=== PATIENT | female | born 1955 | race Caucasian/White ===

== ENCOUNTER 2017-06-09 16:06 | Inpatient (IN) | payer MEDICARE, OTHER ==
[~2017-06-09] VITALS: Ht 160 cm; Wt 186.0 kg
[2017-06-09] VITALS (15 sets, daily range): BP systolic 107–138; BP diastolic 52–76
[2017-06-09] MEDS ORDERED: NS IV 1000 ML 1,000 ML ONE ×2 (16:24→20:14)
[2017-06-09 16:48] LABS: BASOPHILS # (AUTO) 0.1 10^3/uL (0.0-0.1); BASOPHILS % (AUTO) 0 % (0-10); EOSINOPHILS # (AUTO) 0.8 10^3/uL (0.0-0.3); EOSINOPHILS % (AUTO) 6 % (0-10); LYMPHOCYTES # (AUTO) 1.5 X 10^3 (1.0-4.0); LYMPHOCYTES % (AUTO) 11 % (12-44); MEAN CORPUSCULAR HEMOGLOBIN 22 PG (25-34); MEAN CORPUSCULAR HGB CONC 29 G/DL (32-36); MEAN CORPUSCULAR VOLUME 76 FL (80-99); MEAN PLATELET VOLUME 10.8 FL (7.4-10.4); MONOCYTES % (AUTO) 7 % (0-12); NEUTROPHILS # (AUTO) 10.2 X 10^3 (1.8-7.8); NEUTROPHILS % (AUTO) 76 % (42-75); PLATELET COUNT 445 10^3/uL (130-400); RED BLOOD COUNT 2.46 10^6/uL (4.35-5.85); RED CELL DISTRIBUTION WIDTH 17.7 % (10.0-14.5); WHITE BLOOD COUNT 13.5 10^3/uL (4.3-11.0)
[2017-06-09 16:50] LABS: HEMATOCRIT 19 % (35-52); HEMOGLOBIN 5.4 G/DL (11.5-16.0)
[2017-06-09 16:51] LABS: INR 1.2 (0.8-1.4); PROTHROMBIN TIME PATIENT 14.9 SEC (12.2-14.7)
[2017-06-09 17:03] LABS: ALBUMIN 3.2 GM/DL (3.2-4.5); BILIRUBIN,TOTAL 1.1 MG/DL (0.1-1.0); CALCIUM 8.4 MG/DL (8.5-10.1); CREATININE SERUM 1.37 MG/DL (0.60-1.30); TOTAL PROTEIN 6.5 GM/DL (6.4-8.2)
--- NOTE | 2017-06-09 17:51 | ED GU-Female ---
General Chief Complaint: -Female Stated Complaint: BLEEDING Nursing Triage Note: PT REPORTS VAGINAL/RECTAL BLEEDING STARTING APPROX 4 MONTHS AGO OFF AND ON, AND FRIDAY INCREASED TO SIGNIFICANT AMOUNT. PT STATES SHE IS GENERALLY AMB AT HOME BUT HAS BEEN TOO WEAK SINCE FRIDAY TO MOVE. PT HAS HAD INCREASED SOA AND HAS BEEN PASSING LARGE CLOTS. PT BROUGHT IN BY EMS WITH PFD ASSIST. PT REPORTS BEING HOMEBOUND SINCE 05/22/13. Nursing Sepsis Screen: No Definite Risk Source: patient Exam Limitations: no limitations History of Present Illness Date Seen by Provider: Jun 09, 2017 Time Seen by Provider: 17:51 Allergies and Home Medications Home Medications No Active Prescriptions or Reported Meds Past Smmmwfq-Ehuzbp-Icieky Hx Patient Social History Alcohol Use: Denies Use Recreational Drug Use: No Smoking Status: Former Smoker Former Smoker, Quit: May 22, 2013 2nd Hand Smoke Exposure: No Recent Foreign Travel: No Contact w/Someone Who Travel: No Recent Infectious Disease Expo: No Recent Hopitalizations: No Physical Abuse: No Sexual Abuse: No Mistreated: No Fear: No Immunizations Up To Date Tetanus Booster (TDap): More than 5yrs Seasonal Allergies Seasonal Allergies: Yes Surgeries Surgeries: Adenoidectomy, Tonsillectomy Respiratory History of Respiratory Disorde: Yes Respiratory Disorders: Asthma, Pneumonia Currently Using CPAP: No Currently Using BIPAP: No Cardiovascular History of Cardiac Disorders: No Neurological History of Neurological Disord: No Reproductive System : No Genitourinary History of Genitourinary Disor: No Gastrointestinal History of Gastrointestinal Di: No Musculoskeletal History of Musculoskeletal Dis: Yes (BROKE COCCYX ) Musculoskeletal Disorders: Chronic Back Pain Endocrine History of Endocrine Disorders: No HEENT History of HEENT Disorders: No Cancer History of Cancer: No Psychosocial History of Psychiatric Problem: Yes Behavioral Health Disorders: Anxiety Suicide Risk Score: 1 Integumentary History of Skin or Integumenta: Yes Skin/Integumentary Disorders: Recent Skin Changes Blood Transfusions History of Blood Disorders: No Adverse Reaction to a Blood Tr: No Physical Exam Vital Signs Vital Sign - Last 12Hours 06/09/17 16:10 Temp 97.9 Pulse 115 Resp 26 B/P (MAP) 132/51 (78) Pulse Ox 91 O2 Delivery Room Air Capillary Refill : Less Than 3 Seconds Progress/Results/Core Measures Suspected Sepsis Recent Fever Within 48 Hours: No Infection Criteria Present: None New/Unexplained Altered Menta: No Sepsis Screen: No Definite Risk Sepsis Diagnosis: SIRS Temperature:97.9 Pulse: 115 Respiratory Rate: 26 Laboratory Tests 06/09/17 16:20: White Blood Count 13.5H Blood Pressure 132 /51 Mean: 78 Laboratory Tests 06/09/17 16:20: Creatinine 1.37H, INR Comment 1.2, Platelet Count 445H, Total Bilirubin 1.1H Results/Orders Lab Results Laboratory Tests Test 06/09/17 16:20 Range/Units White Blood Count 13.5 H 4.3-11.0 10^3/uL Red Blood Count 2.46 L 4.35-5.85 10^6/uL Hemoglobin 5.4 *L 11.5-16.0 G/DL Hematocrit 19 *L 35-52 % Mean Corpuscular Volume 76 L 80-99 FL Mean Corpuscular Hemoglobin 22 L 25-34 PG Mean Corpuscular Hemoglobin Concent 29 L 32-36 G/DL Red Cell Distribution Width 17.7 H 10.0-14.5 % Platelet Count 445 H 130-400 10^3/uL Mean Platelet Volume 10.8 H 7.4-10.4 FL Neutrophils (%) (Auto) 76 H 42-75 % Lymphocytes (%) (Auto) 11 L 12-44 % Monocytes (%) (Auto) 7 0-12 % Eosinophils (%) (Auto) 6 0-10 % Basophils (%) (Auto) 0 0-10 % Neutrophils # (Auto) 10.2 H 1.8-7.8 X 10^3 Lymphocytes # (Auto) 1.5 1.0-4.0 X 10^3 Monocytes # (Auto) 1.0 0.0-1.0 X 10^3 Eosinophils # (Auto) 0.8 H 0.0-0.3 10^3/uL Basophils # (Auto) 0.1 0.0-0.1 10^3/uL Prothrombin Time 14.9 H 12.2-14.7 SEC INR Comment 1.2 0.8-1.4 Activated Partial Thromboplast Time 33 24-35 SEC Sodium Level 136 135-145 MMOL/L Potassium Level 4.0 3.6-5.0 MMOL/L Chloride Level 102 98-107 MMOL/L Carbon Dioxide Level 19 L 21-32 MMOL/L Anion Gap 15 H 5-14 MMOL/L Blood Urea Nitrogen 15 7-18 MG/DL Creatinine 1.37 H 0.60-1.30 MG/DL Estimat Glomerular Filtration Rate 39 BUN/Creatinine Ratio 11 Glucose Level 156 H 70-105 MG/DL Calcium Level 8.4 L 8.5-10.1 MG/DL Total Bilirubin 1.1 H 0.1-1.0 MG/DL Aspartate Amino Transf (AST/SGOT) 14 5-34 U/L Alanine Aminotransferase (ALT/SGPT) 10 0-55 U/L Alkaline Phosphatase 61 40-136 U/L Total Protein 6.5 6.4-8.2 GM/DL Albumin 3.2 3.2-4.5 GM/DL My Orders Orders - SAUL JAMES Cbc With Automated Diff (06/09/17 16:37) Comprehensive Metabolic Panel (06/09/17 16:37) Type And Screen (06/09/17 16:37) Saline Lock/Iv-Start (06/09/17 16:37) Catheter(Urinary) Insert & Ass 03,15 (06/09/17 16:37) Protime With Inr (06/09/17 16:37) Partial Thromboplastin Time (06/09/17 16:37) Red Cells Leukocytes Reduced (06/09/17 17:01) Medications Given in ED Current Medications Medications Dose Ordered Sig/Skinny Route Start Time Stop Time Status Last Admin Dose Admin Sodium Chloride 1,000 ml @ ud STK-MED ONCE .ROUTE 06/09/17 16:24 06/09/17 16:26 DC 06/09/17 16:27 999 MLS/HR Vital Signs/I&O Vital Sign - Last 12Hours 06/09/17 16:10 Temp 97.9 Pulse 115 Resp 26 B/P (MAP) 132/51 (78) Pulse Ox 91 O2 Delivery Room Air Capillary Refill : Less Than 3 Seconds Blood Pressure Mean: 78 Departure Departure-Patient Inst. Referrals: NO,LOCAL PHYSICIAN (PCP/Family) Primary Care Physician Scripts No Active Prescriptions or Reported Meds SAUL JAMES Jun 09, 2017 17:51
--- NOTE | 2017-06-09 19:30 | Diagnostic Imaging Report ---
Clinical indication: Patient with shortness of air. Exam: Portable chest x-ray upright view. Comparison: None. Findings: Limited exam due to patient body habitus. There is bony thickening involving the posterior aspect of the right T6 rib, likely from old healed fracture changes. There is suspected mild atelectasis in both lung bases. There is mild cardiomegaly. There is no significant pulmonary vascular congestion. There is no gross pleural effusion or pneumothorax. There are degenerative spurs involving the thoracic spine. Impression: 1.: Limited exam due to patient body habitus. 2: There is suspected mild bibasilar atelectasis with no definite radiographic evidence of acute cardiopulmonary process. 3: Mild cardiomegaly with no significant pulmonary vascular congestion. 4: Likely old healed fracture changes of the right T6 rib. Dictated by: Dictated on workstation # [id number]
[2017-06-09] MEDS ORDERED: CATHETER FLUSH 10 ML SYR IV PRN (20:30)
[2017-06-09] MEDS ORDERED: ONDANSETRON 4 MG/2 ML (SDV) Z0FRAN IV PRN (20:30)
[2017-06-09] MEDS: NS IV 1000 ML 1,000 ML IV SCH (21:08)
[2017-06-09] MEDS: ACETAMINOPHEN 325 MG TABLET/CAPLET (TYLENOL) PO PRN (22:58)
[2017-06-09 23:01] LABS: BILIRUBIN,URINE NEGATIVE (NEGATIVE); CLARITY,URINE SLIGHTLY CLOUDY; COLOR,URINE AMBER; GLUCOSE, URINE (UA) NEGATIVE (NEGATIVE); KETONES,URINE NEGATIVE (NEGATIVE); LEUKOCYTE ESTERASE ,URINE 1+ (NEGATIVE); NITRITE,URINE NEGATIVE (NEGATIVE); PH,URINE 5 (5-9); PROTEIN,URINE 2+ (NEGATIVE); UROBILINOGEN,URINE 1 MG/DL (NORMAL)
[2017-06-09 23:08] LABS: AMORPHOUS SEDIMENT,UR FEW AMOR URATES /LPF
[2017-06-10] VITALS (30 sets, daily range): BP systolic 113–178; BP diastolic 55–94
[2017-06-10] MEDS: NS IV 1000 ML 1,000 ML IV SCH ×3 (00:44→17:59)
[2017-06-10 03:29] LABS: HEMOGLOBIN 6.3 G/DL (11.5-16.0)
[2017-06-10 04:58] LABS: BASOPHILS # (AUTO) 0.1 10^3/uL (0.0-0.1); BASOPHILS % (AUTO) 0 % (0-10); EOSINOPHILS # (AUTO) 0.7 10^3/uL (0.0-0.3); EOSINOPHILS % (AUTO) 5 % (0-10); HEMATOCRIT 21 % (35-52); LYMPHOCYTES # (AUTO) 1.5 X 10^3 (1.0-4.0); LYMPHOCYTES % (AUTO) 10 % (12-44); MEAN CORPUSCULAR HEMOGLOBIN 24 PG (25-34); MEAN CORPUSCULAR HGB CONC 31 G/DL (32-36); MEAN CORPUSCULAR VOLUME 78 FL (80-99); MEAN PLATELET VOLUME 10.3 FL (7.4-10.4); MONOCYTES # (AUTO) 1.2 X 10^3 (0.0-1.0); MONOCYTES % (AUTO) 8 % (0-12); NEUTROPHILS % (AUTO) 77 % (42-75); PLATELET COUNT 423 10^3/uL (130-400); RED BLOOD COUNT 2.72 10^6/uL (4.35-5.85); RED CELL DISTRIBUTION WIDTH 17.3 % (10.0-14.5); WHITE BLOOD COUNT 14.4 10^3/uL (4.3-11.0)
[2017-06-10 05:00] LABS: HEMOGLOBIN 6.5 G/DL (11.5-16.0)
[2017-06-10] MEDS: ACETAMINOPHEN 325 MG TABLET/CAPLET (TYLENOL) PO PRN ×2 (05:14→18:15)
[2017-06-10 05:25] LABS: ALBUMIN 3.1 GM/DL (3.2-4.5); BILIRUBIN,TOTAL 2.4 MG/DL (0.1-1.0); CALCIUM 8.1 MG/DL (8.5-10.1); CREATININE SERUM 1.37 MG/DL (0.60-1.30); MAGNESIUM 2.2 MG/DL (1.8-2.4); PHOSPHORUS 4.1 MG/DL (2.3-4.7); POTASSIUM 4.2 MMOL/L (3.6-5.0); TOTAL PROTEIN 6.3 GM/DL (6.4-8.2)
[2017-06-10 05:35] LABS: ANISOCYTOSIS SLIGHT; BAND NEUTROPHILS 2 %; EOSINOPHILS % (MANUAL) 5 %; HYPOCHROMASIA SLIGHT; LYMPHOCYTES % (MANUAL) 4 %; MONOCYTES % (MANUAL) 7 %; NEUTROPHILS % (MANUAL) 82 %; POIKILOCYTOSIS SLIGHT; POLYCHROMASIA SLIGHT
--- NOTE | 2017-06-10 06:36 | Pulmonary Consultation ---
History of Present Illness History of Present Illness Date of Consultation 06/10/17 06:30 Time Seen by Provider: 06:30 Date of Admission History of Present Illness 61yo with morbid obesity presented secondary vaginal/rectal bleeding that stated 4 months ago however became much worse on Friday. She lives at home alone and has not left her house in 5 yrs. Pt has been very weak and has been passing large vaginal clots. I am consulted for ICU management. Allergies and Home Medications Allergies Coded Allergies: No Known Drug Allergies (Unverified , 06/09/17) Home Medications No Active Prescriptions or Reported Meds Past Kiohqnt-Oilaxz-Oqmvvj Hx Patient Social History Alcohol Use: Denies Use Recreational Drug Use: No Smoking Status: Never a Smoker Former Smoker, Quit: May 22, 2013 2nd Hand Smoke Exposure: No Recent Foreign Travel: No Contact w/Someone Who Travel: No Recent Infectious Disease Expo: No Recent Hopitalizations: No Physical Abuse: No Sexual Abuse: No Mistreated: No Fear: No Immunizations Up To Date Tetanus Booster (TDap): More than 5yrs PED Vaccines UTD: No Seasonal Allergies Seasonal Allergies: Yes Surgeries History of Surgeries: Yes Surgeries: Adenoidectomy, Tonsillectomy Respiratory History of Respiratory Disorde: Yes Respiratory Disorders: Asthma, Pneumonia Currently Using CPAP: No Currently Using BIPAP: No Cardiovascular History of Cardiac Disorders: No Neurological History of Neurological Disord: No Reproductive System : No Genitourinary History of Genitourinary Disor: No Gastrointestinal History of Gastrointestinal Di: No Musculoskeletal History of Musculoskeletal Dis: Yes (BROKE COCCYX ) Musculoskeletal Disorders: Chronic Back Pain Endocrine History of Endocrine Disorders: No HEENT History of HEENT Disorders: No Cancer History of Cancer: No Psychosocial History of Psychiatric Problem: Yes Behavioral Health Disorders: Anxiety Suicide Risk Score: 1 Integumentary History of Skin or Integumenta: Yes Skin/Integumentary Disorders: Recent Skin Changes Blood Transfusions History of Blood Disorders: No Adverse Reaction to a Blood Tr: No Family Medical History Family Medial History: Arthritis Cardiovascular disease 19 MOTHER, , Onset:60 years & older Colon cancer 19 MOTHER, , Onset:60 years & older FH: lung cancer 19 FATHER, , Onset:60 years & older Hypertension 19 MOTHER, , Onset:40's - 50 Review of Systems Time Seen by Provider: 06:54 Constitutional: Sweats, Weakness, Malaise, No: Fever, Chills, Other Eyes: No: Pain, Vision change, Conjunctivae inflammation, Eyelid inflammation, Other, Redness ENT: No: Ear pain, Ear discharge, Nose pain, Nose discharge, Nose congestion, Mouth pain, Mouth swelling, Throat pain, Throat swelling, Other Respiratory: SOB with excertion, No: Cough, Dry, Wheezing, Sputum Cardiovascular: Orthopnea, Paroxysmal Noc. Dyspnea, No: Chest Pain, Palpitations, Edema, Lt Headedness, Other Gastrointestinal: Hematochezia, No: Nausea, Vomiting, Abdominal Pain, Diarrhea , Constipation, Melena, Other Musculoskeletal: back pain Skin: Rash, Lesions, No: Jaundice, Bruising Neurological: Weakness, Incoordination, Confusion, No: Change in speech, Seizures Exam Exam Vital Signs Date Time Temp Pulse Resp B/P (MAP) Pulse Ox O2 Delivery O2 Flow Rate FiO2 06/10/17 06:00 95 24 139/74 (95) 100 Nasal Cannula 2.00 06/10/17 06:00 99.7 98 24 139/75 100 Nasal Cannula 2.00 06/10/17 05:00 100 18 132/63 (86) 99 Nasal Cannula 2.00 06/10/17 04:59 98.9 100 22 132/63 100 Nasal Cannula 06/10/17 04:10 99.0 101 17 152/80 100 Nasal Cannula 2.00 06/10/17 04:00 99 18 131/68 (89) 99 Nasal Cannula 2.00 06/10/17 03:55 99.4 101 26 120/63 100 Nasal Cannula 2.00 06/10/17 03:15 99.4 06/10/17 03:15 99 Nasal Cannula 2.00 06/10/17 03:00 98 24 126/55 (78) 99 Nasal Cannula 2.00 06/10/17 02:22 99.4 98 14 113/60 100 Nasal Cannula 2.00 06/10/17 02:00 99 15 113/60 (77) 100 Nasal Cannula 2.00 06/10/17 01:00 101 06/10/17 01:00 101 23 129/69 (89) 100 Nasal Cannula 2.00 06/10/17 00:30 100 Nasal Cannula 2.00 06/10/17 00:13 98.6 96 18 125/66 100 Nasal Cannula 2.00 06/10/17 00:00 98 23 125/66 (85) 100 Nasal Cannula 2.00 06/09/17 23:54 98.4 Nasal Cannula 2.00 06/09/17 23:52 98.6 93 20 123/63 100 Nasal Cannula 2.00 06/09/17 23:20 98.4 97 22 132/62 100 Nasal Cannula 2.00 06/09/17 23:00 98 26 118/56 (76) 100 Nasal Cannula 2.00 06/09/17 22:45 98 24 120/57 (78) 100 Nasal Cannula 2.00 06/09/17 22:30 98.7 95 18 107/52 100 Nasal Cannula 2.00 06/09/17 22:30 97 29 107/52 (70) 100 Nasal Cannula 2.00 06/09/17 22:15 110 20 110/56 (74) 100 Nasal Cannula 2.00 06/09/17 22:00 118 31 94 Nasal Cannula 2.00 06/09/17 21:45 103 32 138/76 (96) 100 Nasal Cannula 2.00 06/09/17 21:30 103 28 138/73 (94) 100 Nasal Cannula 2.00 06/09/17 21:15 104 35 138/68 (91) 100 Nasal Cannula 2.00 06/09/17 21:00 101 14 131/58 (82) 100 Nasal Cannula 2.00 06/09/17 20:45 97 28 126/59 (81) 100 Nasal Cannula 2.00 06/09/17 20:45 99.0 99 24 126/59 100 Nasal Cannula 2.00 06/09/17 20:30 98 16 116/61 (79) 100 Nasal Cannula 2.00 06/09/17 20:24 98.9 99 24 112/61 100 Nasal Cannula 2.00 06/09/17 20:15 97 14 112/61 (78) 100 Nasal Cannula 2.00 06/09/17 20:00 99.0 104 28 137/66 (89) 100 Nasal Cannula 2.00 06/09/17 20:00 100 Nasal Cannula 2.00 06/09/17 20:00 104 06/09/17 19:40 98 20 97 Nasal Cannula 2.00 06/09/17 16:10 97.9 115 26 132/51 (78) 91 Room Air I & O 06/10/17 07:00 Intake Total 2939 ml Output Total 395 ml Balance 2544 ml General Appearance: Anxious, Mild Distress, Obese HEENT: PERRL/EOMI Neck: Full Range of Motion, Non Tender, Supple Respiratory: No Accessory Muscle Use, No Respiratory Distress, Decreased Breath Sounds Cardiovascular: Regular Rate, Rhythm, No JVD, No Murmur Capillary Refill: Less Than 3 Seconds Gastrointestinal: non tender, soft, no organomegaly, no pulsatile mass Extremity: Normal Capillary Refill, Normal Inspection, Non Tender, No Calf Tenderness Neurologic/Psychiatric: Alert, Oriented x3, No Motor/Sensory Deficits Skin: Normal Color, Warm/Dry Lymphatic: No Adenopathy Results Lab Laboratory Tests 06/09/17 16:20 06/10/17 03:15 06/10/17 04:40 Assessment/Plan Assessment/Plan Anemia secondary to vaginal and possible GIB -Dr. Menjivar is consulted -Follow H&H Q4 hrs -Check occult stool -Start protonix 40mg IV daily -PT is getting 4 units of blood Morbid obesity Leukocytosis r/o sepsis -Start Rocephin -Charles culture 255 Clinical Quality Measures DVT/VTE Risk/Contraindication: Risk Factor Score Per Nursin RFS Level Per Nursing on Admit: 4+=Very High NASIR LUCIO DO Jun 10, 2017 06:36
[2017-06-10] MEDS ORDERED: INFLUENZA TRIvalent 2017-2018 0.5 ML/45 MCG SYR IM ONE (07:00)
--- NOTE | 2017-06-10 08:07 | History & Physical-Hospitalist ---
HPI History of Present Illness: HPI/Chief Complaint Pt is a 61yoCF who presented to the ER with complaints of vaginal and rectal bleeding. She has not seen a physician for years and has no left her apartment some May 2013 due to her debility from her morbid obesity. She begin to have vaginal bleeding around 4 months ago but did not seek treatment because it would resolve after a few days. On 06/06 her bleeding picked up and continued to worsening prompting her to call EMS. She reports she was passing clots the size of a cantaloupe. She was also suffering from SOB and weakness. She denies any pain or chest pain. At this time she believes her bleeding to be coming from both her rectum and her vagina. Date Seen 06/10/17 Time Seen by Provider: 07:40 Attending Physician Wagner Caldera MD PCP No,Local Physician Referring Physician Date of Admission Jun 09, 2017 at 18:59 Home Medications & Allergies Home Medications Reviewed patient Home Medication Reconciliation Form Allergies Allergies Coded Allergies No Known Drug Allergies (Unverified06/09/17) Past Ivbqlrx-Hnecvk-Knmuen Hx Patient Social History Marrital Status: single Employed/Student: unemployed Alcohol Use: Denies Use Recreational Drug Use: No Smoking Status: Never a Smoker Former Smoker, Quit: May 22, 2013 2nd Hand Smoke Exposure: No Physical Abuse Screen: No Sexual Abuse: No Recent Foreign Travel: No Contact w/other who traveled: No Recent Hopitalizations: No Recent Infectious Disease Expo: No Immunizations Up To Date Tetanus Booster (TDap): More than 5yrs Pediatric: No Seasonal Allergies Seasonal Allergies: Yes Surgeries Yes Adenoidectomy, Tonsillectomy Respiratory Yes Currently Using CPAP: No Currently Using BIPAP: No Cardiovascular No Neurological No Reproductive System : No Genitourinary No Gastrointestinal No Musculoskeletal Yes (BROKE COCCYX ) Chronic Back Pain Endocrine History of Endocrine Disorders: No HEENT History of HEENT Disorders: No Cancer No Psychosocial History of Psychiatric Problem: Yes Behavioral Health Disorders: Anxiety Integumentary History of Skin or Integumenta: Yes Skin/Integumentary Disorders: Recent Skin Changes Blood Transfusions History of Blood Disorders: No Adverse Reaction to a Blood Tr: No Family Medical History Family Hx: Arthritis Cardiovascular disease 19 MOTHER, , Onset:60 years & older Colon cancer 19 MOTHER, , Onset:60 years & older FH: lung cancer 19 FATHER, , Onset:60 years & older Hypertension 19 MOTHER, , Onset:40's - 50 Review of Systems Constitutional: No chills, No fever, weakness EENTM: No blurred vision, No double vision Respiratory: No cough, dyspnea on exertion, short of breath Cardiovascular: No chest pain, edema, No palpitations Gastrointestinal: No abdominal pain, loss of appetite, No nausea, No vomiting Genitourinary: No dysuria, hematuria Musculoskeletal: no symptoms reported Skin: no symptoms reported Psychiatric/Neurological: No Symptoms Reported Physical Exam Physical Exam Vital Signs Vital Sign - Last 12Hours 06/09/17 06/09/17 16:10 19:40 Temp 97.9 Pulse 115 Resp 26 B/P (MAP) 132/51 (78) Pulse Ox 91 O2 Delivery Room Air O2 Flow Rate 2.00 Capillary Refill : Less Than 3 Seconds General Appearance: No Apparent Distress, Other (morbidly obese) Neck: Non Tender, Supple Respiratory: Lungs Clear (though limited by habitus), No Accessory Muscle Use, No Respiratory Distress Cardiovascular: No Murmur, Tachycardia Gastrointestinal: Normal Bowel Sounds, Non Tender, Soft Extremity: Swelling, Other (lymphedema (r>l)) Neurologic/Psychiatric: Alert, Oriented x3, Normal Mood/Affect Skin: Pallor Results Results/Procedures Lab Laboratory Tests 06/09/17 16:20 06/10/17 03:15 06/10/17 04:40 Assessment/Plan Admission Diagnosis Symptomatic anemia Diagnosis/Problems Diagnosis/Problems (1) Anemia Assessment & Plan: s/p 3u pRBC 4th unit ordered Still profound anemia and symptomatic PUBLIC RELATIONS COUNSELOR consulted- appreciate recs Surgery consulted- appreciate recs Qualifiers: Qualified Codes: D62 - Acute posthemorrhagic anemia (2) Vaginal bleeding problems Status: Acute Assessment & Plan: concern for undelrying neoplasm Discussed with Dr Menjivar Transvaginal usg ordered Will likely need exam under anesthesia with EMB once more stable (3) Leukocytosis Assessment & Plan: Started on Rocephin Will continue to monitor (4) Morbid obesity with BMI of 70 and over, adult Assessment & Plan: Complicating care Unable to get CT of abd due to obesity Also difficult pelvic exam due to pannus/obesity Clinical Quality Measures DVT/VTE Risk/Contraindication: Risk Factor Score Per Nursin RFS Level Per Nursing on Admit: 4+=Very High STEW,WAGNER M MD Jun 10, 2017 08:07
--- NOTE | 2017-06-10 08:21 | Diagnostic Imaging Report ---
INDICATION: Anemia. TIME OF EXAM: 4:16 a.m. Correlation is made with prior study one day earlier. FINDINGS: The heart is enlarged but stable. There appears to be some right perihilar atelectasis or infiltrate. The left lung is clear. No effusion or pneumothorax is seen. IMPRESSION: Findings suggestive of mild right perihilar infiltrate or atelectasis. Dictated by: Dictated on workstation # [id number]
[2017-06-10] MEDS: cefTRIAXone INJECTION 1,000 MG in D5W 50 ML IVPB SOLUTION 50 ML IV SCH (08:56)
[2017-06-10] MEDS: PANTOPRAZOLE 40 MG/10 ML (PROTONIX) VIAL IV SCH (08:56)
[2017-06-10] MEDS: MICONAZOLE 2% POWDER (DESENEX AF) 90 GM TOP SCH ×2 (09:00→20:52)
--- NOTE | 2017-06-10 10:24 | Consultation ---
History of Present Illness History of Present Illness Patient Consulted On(nga/time) 06/10/17 10:21 Date Seen by Provider: Jun 10, 2017 Time Seen by Provider: 09:45 Reason for Visit: Rectal and vaginal bleeding with profound anemia History of Present Illness this morbidly obese lady, who lives by herself and has not left her house for over 2 years reports suffering rectal and vaginal bleeding over a two-month period. She panicked and called emergency medical services, resulting in ER visit and subsequent admission. She has been found to be anemic with a hemoglobin of 5.4 ,possibly due to chronic blood loss. I have been asked to see her to investigate the source of rectal bleeding. She denies ever having undergone colonoscopy. Allergies and Home Medications Allergies Coded Allergies: No Known Drug Allergies (Unverified , 06/09/17) Home Medications No Active Prescriptions or Reported Meds Past Aqinyyx-Jyoiet-Geyxgt Hx Patient Social History Alcohol Use: Denies Use Recreational Drug Use: No Smoking Status: Never a Smoker Former Smoker, Quit: May 22, 2013 2nd Hand Smoke Exposure: No Recent Foreign Travel: No Contact w/Someone Who Travel: No Recent Infectious Disease Expo: No Recent Hopitalizations: No Physical Abuse: No Sexual Abuse: No Mistreated: No Fear: No Immunizations Up To Date Tetanus Booster (TDap): More than 5yrs PED Vaccines UTD: No Seasonal Allergies Seasonal Allergies: Yes Surgeries History of Surgeries: Yes Surgeries: Adenoidectomy, Tonsillectomy Respiratory History of Respiratory Disorde: Yes Respiratory Disorders: Asthma, Pneumonia Currently Using CPAP: No Currently Using BIPAP: No Cardiovascular History of Cardiac Disorders: No Neurological History of Neurological Disord: No Reproductive System : No Genitourinary History of Genitourinary Disor: No Gastrointestinal History of Gastrointestinal Di: No Musculoskeletal History of Musculoskeletal Dis: Yes (BROKE COCCYX ) Musculoskeletal Disorders: Chronic Back Pain Endocrine History of Endocrine Disorders: No HEENT History of HEENT Disorders: No Cancer History of Cancer: No Psychosocial History of Psychiatric Problem: Yes Behavioral Health Disorders: Anxiety Suicide Risk Score: 1 Integumentary History of Skin or Integumenta: Yes Skin/Integumentary Disorders: Recent Skin Changes Blood Transfusions History of Blood Disorders: No Adverse Reaction to a Blood Tr: No Family Medical History Family Medial History: Arthritis Cardiovascular disease 19 MOTHER, , Onset:60 years & older Colon cancer 19 MOTHER, , Onset:60 years & older FH: lung cancer 19 FATHER, , Onset:60 years & older Hypertension 19 MOTHER, , Onset:40's - 50 Review of Systems-General Constitutional: malaise, weakness EENTM: no symptoms reported Respiratory: dyspnea on exertion Cardiovascular: edema, palpitations Gastrointestinal: see HPI Genitourinary: see HPI Musculoskeletal: joint pain, muscle pain, muscle weakness Skin: see HPI Psychiatric/Neurological: Anxiety Physical Exam-General Problems Physical Exam Vital Signs Vital Sign - Last 12Hours 06/09/17 06/09/17 16:10 19:40 Temp 97.9 Pulse 115 Resp 26 B/P (MAP) 132/51 (78) Pulse Ox 91 O2 Delivery Room Air O2 Flow Rate 2.00 Capillary Refill : Less Than 3 Seconds General Appearance: mild distress Skin: warm/dry Comments morbidly obese patient with anemia due to chronic blood loss. Vaginal and rectal bleeding. Abdomen obese. No obvious mass palpable. Assessment/Plan Assessment/Plan Admission Diagnosis/Plan lady with chronic anemia due to blood loss. Combination of vaginal rectal bleeding. Evaluation by the PULMONARY NURSE PRACTITIONER service is pending. With regard to rectal bleeding, she will require endoscopy, possibly as an outpatient Clinical Quality Measures DVT/VTE Risk/Contraindication: Risk Factor Score Per Nursin RFS Level Per Nursing on Admit: 4+=Very High UNIQUE LEON MD Jun 10, 2017 10:24 am
--- NOTE | 2017-06-10 11:13 | Diagnostic Imaging Report ---
INDICATION: Vaginal bleeding. TECHNIQUE: Transabdominal and transvaginal pelvic sonography was performed. The study is significantly compromised due to the patient's large body habitus. In particular, the vaginal imaging was compromised. The patient did experience discomfort during the transvaginal portion. FINDINGS: The uterus is enlarged at 15.3 x 11.0 x 8.1 cm. There does appear to be a lobulated appearance to the uterus which may contain fibroids. The endometrium was not well visualized on this study. The ovaries were not visualized. No definite free fluid is seen. IMPRESSION: Severely limited study as described above. There is uterine enlargement. The endometrium and adnexal structures were not well-visualized on this exam. Dictated by: Dictated on workstation # [id number]
--- NOTE | 2017-06-10 12:14 | Diagnostic Imaging Report ---
INDICATION: PICC line placement. TIME OF EXAM: 11:50 a.m. COMPARISON: Comparison is made with prior exam from earlier the same morning. FINDINGS: The heart size is stable. There is a PICC line on the right, which appears to be coiled in the region of the axillary vein. The tip does appear to be directed antegrade at the level of the mid subclavian vein. No pneumothorax is seen. IMPRESSION: Malpositioned right upper extremity PICC line, as described. Dictated by: Dictated on workstation # [id number]
--- NOTE | 2017-06-10 12:56 | Diagnostic Imaging Report ---
INDICATION: PICC line repositioned. Time of exam: 12:38 PM Correlation is made with study earlier the same day. A PICC line continues to be coiled in the axillary vein region. The tip appears to have been pulled back and it now overlies the lateral portion of the subclavian vein. No pneumothorax is seen. IMPRESSION: Continued malpositioned right upper extremity PICC line. Report was called Amrita/MAHNAZ [facility] ICU by deandra at 12:57 p.m. Dictated by: Dictated on workstation # [id number]
[2017-06-10] MEDS: morphine INJ 4 MG/ML 1 ML (VIAL/SYRINGE) IV PRN (13:05)
[2017-06-10 15:28] LABS: HEMOGLOBIN 7.9 G/DL (11.5-16.0)
[2017-06-10] MEDS ORDERED: amLODIPine 5 MG (NORVASC) TAB PO NR (17:15)
[2017-06-10 19:10] LABS: HEMOGLOBIN 7.5 G/DL (11.5-16.0)
[2017-06-10] MEDS ORDERED: ceFAZolin 2 GM/50 ML NS 50 ML IV NR (19:45)
--- NOTE | 2017-06-10 19:49 | Consultation ---
History of Present Illness History of Present Illness Patient Consulted On(nga/time) 06/10/17 19:49 Date Seen by Provider: Jun 10, 2017 Time Seen by Provider: 19:00 Reason for Visit: Rectal and vaginal bleeding with profound anemia History of Present Illness This is a 61 year old who presented to ED on Friday with complaint of heavy vaginal bleeding and rectal bleeding. States this has been ongoing for "a few months". She states she had menopause at age 45 or 46. 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 No history of abnormal pap smear,or STD. 1 vaginal delivery with no complication, no history of infertility. States menses were always regular. She reports no chronic medical issues except for morbid obesity. She has been home/bed bound for at least 4 years. States that bleeding started several months ago, but that it greatly increased this past week. Her son was home at [place] and asked her to go to the hospital to be seen but she declined. However, reports Friday started passing very large clots. "Thought I was dying'. States she was so weak she couldn't lift her hand. Severely fatigued. Very dizzy. "heard band in head".Passed clots the size of cantaloupes. Couldn't get up. Called son Friday at 0400 and told him to come from [place] to take her to the hospital. He offered to call 911 but she declined. He came from [place] and brought her to the ED. In ED hemoglobin was 5. Exam was done but inadequate due to bleeding. Has also noted that she now has blood from the rectum. Last BM was Friday but has noted constipation with decreased caliber of stool. Noted increased frequency but not hematuria. No fever, no nausea, emesis. But has noted that she "feels full" sometimes even though she hasn't eaten. She then would have bleeding and felt better. Bleeding is painless. Also reports severe swelling of the right leg. states it has had increase in swelling over the past year. States she is unable to move her right knee or lift her leg. No history of diabetes, cardiac dieases or chronic lung disease. Does not require O2 at home, though she is on nasal canula here. She takes no chronic medications. Allergies and Home Medications Allergies Coded Allergies: No Known Drug Allergies (Unverified , 1/22/18) Home Medications No Active Prescriptions or Reported Meds Past Yhgikiy-Nfpqlm-Aectkh Hx Patient Social History Alcohol Use: Denies Use Recreational Drug Use: No Smoking Status: Former Smoker Former Smoker, Quit: May 22, 2013 2nd Hand Smoke Exposure: No Recent Foreign Travel: No Contact w/Someone Who Travel: No Recent Infectious Disease Expo: No Recent Hopitalizations: No Physical Abuse: No Sexual Abuse: No Mistreated: No Fear: No Immunizations Up To Date Tetanus Booster (TDap): More than 5yrs PED Vaccines UTD: No Seasonal Allergies Seasonal Allergies: Yes Surgeries History of Surgeries: Yes Surgeries: Adenoidectomy, Tonsillectomy Respiratory History of Respiratory Disorde: Yes Respiratory Disorders: Asthma, Pneumonia Currently Using CPAP: No Currently Using BIPAP: No Cardiovascular History of Cardiac Disorders: No Neurological History of Neurological Disord: No Reproductive System : No Hx : 1 Hx Para: 1 Hx Total # of Abortions (Spona: 0 Hx Reproductive Disorders: No Sexually Transmitted Disease: No HIV/AIDS: No Genitourinary History of Genitourinary Disor: No Gastrointestinal History of Gastrointestinal Di: No Musculoskeletal History of Musculoskeletal Dis: Yes (BROKE COCCYX ) Musculoskeletal Disorders: Chronic Back Pain Endocrine History of Endocrine Disorders: No HEENT History of HEENT Disorders: No Cancer History of Cancer: No Psychosocial History of Psychiatric Problem: Yes Behavioral Health Disorders: Anxiety Suicide Risk Score: 1 Integumentary History of Skin or Integumenta: Yes Skin/Integumentary Disorders: Recent Skin Changes Blood Transfusions History of Blood Disorders: No Adverse Reaction to a Blood Tr: No Family Medical History Family Medial History: Arthritis Cardiovascular disease 19 MOTHER, , Onset:60 years & older Colon cancer 19 MOTHER, , Onset:60 years & older FH: lung cancer 19 FATHER, , Onset:60 years & older Hypertension 19 MOTHER, , Onset:40's - 50 Physical Exam-General Problems Physical Exam Vital Signs Vital Sign - Last 12Hours 06/09/17 06/09/17 16:10 19:40 Temp 97.9 Pulse 115 Resp 26 B/P (MAP) 132/51 (78) Pulse Ox 91 O2 Delivery Room Air O2 Flow Rate 2.00 Capillary Refill : Less Than 3 Seconds General Appearance: moderate distress, obese Gastrointestinal: other (obese ) Rectal: other (unable to be done) Genital/Rectal: other (unable to be done. No current obvious bleeidng but cannot assess in the bed. ) Extremities: other (lymphedema of right leg. Concerning. ) Assessment/Plan Assessment/Plan Admission Diagnosis/Plan 1. profound anemia, s/p 4 units. 2. probably postmenopausal bleeding. Cannot rule out uterine verus cervical. High risk of endometrial cancer, but with no exam or pap in over 10 years, cannot rule ou t cervical cancer as well. 3. morbid obesity, BMI 74 Recommend exam under anesthesia with possible dilation and curettage. endometrial biopsy, cervical biopsy, rectal exam. Risks include uncontrolled bleeding, injury to other organs. Will do tomorrow in the OR. Can do conscious sedation vs general. Dr. Crooks is considering colonoscopy, but vaginal bleeding is much more likely so will do exam and biopsies first and then defer for colonoscopy as needed. Discussed with Drs. Silva and Valeriy. Scheduled for tomorrow. Consent signed. Ancef preoperatively.Npo after midnight Clinical Quality Measures DVT/VTE Risk/Contraindication: Risk Factor Score Per Nursin RFS Level Per Nursing on Admit: 4+=Very High PHUC PARIKH DO Jun 10, 2017 7:49 pm
[2017-06-11] VITALS (22 sets, daily range): BP systolic 125–167; BP diastolic 52–103
[2017-06-11] MEDS: NS IV 1000 ML 1,000 ML IV SCH ×5 (03:12→21:48)
[2017-06-11 04:27] LABS: BASOPHILS # (AUTO) 0.1 10^3/uL (0.0-0.1); BASOPHILS % (AUTO) 0 % (0-10); EOSINOPHILS # (AUTO) 0.8 10^3/uL (0.0-0.3); EOSINOPHILS % (AUTO) 5 % (0-10); HEMATOCRIT 23 % (35-52); HEMOGLOBIN 7.1 G/DL (11.5-16.0); LYMPHOCYTES # (AUTO) 1.4 X 10^3 (1.0-4.0); LYMPHOCYTES % (AUTO) 8 % (12-44); MEAN CORPUSCULAR HEMOGLOBIN 25 PG (25-34); MEAN CORPUSCULAR HGB CONC 31 G/DL (32-36); MEAN CORPUSCULAR VOLUME 81 FL (80-99); MEAN PLATELET VOLUME 10.2 FL (7.4-10.4); MONOCYTES # (AUTO) 1.3 X 10^3 (0.0-1.0); MONOCYTES % (AUTO) 7 % (0-12); NEUTROPHILS # (AUTO) 13.8 X 10^3 (1.8-7.8); NEUTROPHILS % (AUTO) 80 % (42-75); PLATELET COUNT 352 10^3/uL (130-400); RED BLOOD COUNT 2.82 10^6/uL (4.35-5.85); RED CELL DISTRIBUTION WIDTH 17.7 % (10.0-14.5); WHITE BLOOD COUNT 17.4 10^3/uL (4.3-11.0)
[2017-06-11 04:47] LABS: CALCIUM 8.3 MG/DL (8.5-10.1); CREATININE SERUM 1.29 MG/DL (0.60-1.30); MAGNESIUM 2.3 MG/DL (1.8-2.4); PHOSPHORUS 4.2 MG/DL (2.3-4.7); POTASSIUM 4.4 MMOL/L (3.6-5.0)
--- NOTE | 2017-06-11 07:20 | Diagnostic Imaging Report ---
INDICATION: Renal failure. Portable chest 4:10 a.m. FINDINGS: Heart appears mildly enlarged. There is vascular congestion with some interstitial edema. IMPRESSION: Pulmonary venous hypertension. No significant change from previous day. Dictated by: Dictated on workstation # [id number]
[2017-06-11] MEDS ORDERED: HYDROCORTISONE 100 MG/2 ML (Solu-CORTEF) VIAL IV PRN (07:45)
[2017-06-11] MEDS ORDERED: IRON DEXTRAN INJECTION 25 MG in NS (IVPB) 50 ML IV NR (07:45)
[2017-06-11] MEDS ORDERED: EPINEPHrine INJECTION 1 MG/ML AMP IM PRN (07:45)
[2017-06-11] MEDS ORDERED: diphenhydrAMINE 50 MG/ML INJ (BENADRYL) IV PRN (07:45)
[2017-06-11] MEDS ORDERED: RT-ALBUTEROL SULF 2.5 MG/3 ML PRE-MIX VIAL IH PRN (07:45)
--- NOTE | 2017-06-11 07:46 | Progress Note-Hospitalist ---
Subjective HPI/CC On Admission Date Seen by Provider: Jun 11, 2017 Time Seen by Provider: 07:44 Pt is a 61yoCF who presented to the ER with complaints of vaginal and rectal bleeding. She has not seen a physician for years and has no left her apartment some May 2013 due to her debility from her morbid obesity. She begin to have vaginal bleeding around 4 months ago but did not seek treatment because it would resolve after a few days. On 06/06 her bleeding picked up and continued to worsening prompting her to call EMS. She reports she was passing clots the size of a cantaloupe. She was also suffering from SOB and weakness. She denies any pain or chest pain. At this time she believes her bleeding to be coming from both her rectum and her vagina. Subjective/Events-last exam Pt denies any complaints. No further significant bleeding. Plan for EUA today with Dr. Menjivar. Objective Exam Vital Signs Vital Sign - Last 12Hours 06/09/17 06/09/17 16:10 19:40 Temp 97.9 Pulse 115 Resp 26 B/P (MAP) 132/51 (78) Pulse Ox 91 O2 Delivery Room Air O2 Flow Rate 2.00 Capillary Refill : Less Than 3 Seconds General Appearance: No Apparent Distress, Anxious, Obese Respiratory: Lungs Clear (exam ) Cardiovascular: Regular Rate, Rhythm, No Murmur Gastrointestinal: Normal Bowel Sounds, Non Tender, Soft Extremity: Swelling (significant lymphedema R>L) Neurologic/Psychiatric: Alert, Oriented x3 Results/Procedures Lab Laboratory Tests 06/10/17 15:21 06/10/17 19:02 06/11/17 04:07 Assessment/Plan Assessment and Plan Assess & Plan/Chief Complaint anemia Diagnosis/Problems Diagnosis/Problems (1) Anemia Assessment & Plan: Hgb stable since transfusions yesterday- s/p/ 4 units Avoid blood draws as able Infed ordered Still profound anemia and symptomatic DIRECT SUPPORT PROFESSIONAL consulted- appreciate recs Plan for EUA in OR today Surgery consulted- appreciate recs Qualifiers: Qualified Codes: D62 - Acute posthemorrhagic anemia (2) Vaginal bleeding problems Status: Acute Assessment & Plan: concern for underlying neoplasm Discussed with Dr Menjivar Transvaginal usgshows elnlarged uterus but technically difficult exam Plan for EUA today If Renal function continue to improved may be able to get CT abd (3) Leukocytosis Assessment & Plan: Started on Rocephin Will continue to monitor (4) Elevated blood pressure reading Assessment & Plan: Elevated overnight Amlodipine started (5) Morbid obesity with BMI of 70 and over, adult Assessment & Plan: Complicating care Unable to get MRI of abd due to obesity- discussed with CT may be able to get it as weight limit is 450lbs Also difficult pelvic exam due to pannus/obesity WAGNER MATHIAS MD Jun 11, 2017 7:46 am
[2017-06-11] MEDS ORDERED: IRON DEXTRAN INJECTION 975 MG in NS (IVPB) 250 ML IV NR (08:00)
[2017-06-11] MEDS: PANTOPRAZOLE 40 MG/10 ML (PROTONIX) VIAL IV SCH (08:43)
[2017-06-11] MEDS: cefTRIAXone INJECTION 1,000 MG in D5W 50 ML IVPB SOLUTION 50 ML IV SCH (09:33)
[2017-06-11] MEDS: NS IV 500 ML 500 ML IV SCH (10:06)
[2017-06-11] MEDS ORDERED: proPOfol 200 MG/20 ML (DIPRIVAN) VIAL IV ONE (11:38)
[2017-06-11] MEDS ORDERED: LIDOCAINE PF 2% 5 ML (XYLOCAINE) VIAL ONE (11:38)
[2017-06-11] MEDS ORDERED: ROCURONIUM 50 MG/5 ML (ZEMURON) VIAL IV ONE (11:38)
[2017-06-11] MEDS ORDERED: SEVOFLURANE (ULTANE) 15 ML INHAL SOLN ONE ×3 (11:38→13:04)
[2017-06-11] MEDS ORDERED: fentaNYL INJECTION 100 MCG/2 ML AMP ONE ×2 (11:39→11:58)
[2017-06-11] MEDS ORDERED: MIDAZOLAM 2 MG/2 ML (VERSED) VIAL ONE (11:39)
[2017-06-11] MEDS ORDERED: SUCCINYLCHOLINE INJ 100 MG/5 ML SYR ONE (12:51)
[2017-06-11] MEDS ORDERED: ALBUTEROL INHALER HFA (VENTOLIN HFA) 8 GM IH ONE (13:04)
[2017-06-11] MEDS ORDERED: ONDANSETRON 4 MG/2 ML (SDV) Z0FRAN IVP PRN (13:30)
[2017-06-11] MEDS ORDERED: morphine INJ 10 MG/ML 1ML (SYR OR VIAL) IVP PRN (13:30)
--- NOTE | 2017-06-11 13:57 | Operative Report ---
Operative Report Date of Procedure/Surgery Jun 11, 2017 Surgeon (s) PHUC PARIKH DO Sql Server Developer (s): DOMENICO Steinberg; marianelat nec to retract due to morbid obesity and Post-Operative Diagnosis likely endometrial cancer, necrotic tumor Procedure Performed Exam under anesthesia, cervial uterine biopsy Description of Procedure Anesthesia Type: General Estimated blood loss (mL): minimal Specimen(s) collected/removed tumor/mass Description of the Procedure Patient was taken to the operating room where general anesthesia was found to be adequate. She was prepped and draped in the usual sterile fashion in the dorsolithotomy position. The bariatric table and stirrups were used. The legs are extensively heavy and required strapping into the stirrups to make room for exam. The pannus was elevated and strapped to the upper bed. this allowed visualization of the inner thighs. There are very edematous with lymphedema changes and stasis changes. There is no active bleeding from the vagina, h owever, with prep of the vagina, there is tissue coming from the vaginal vault. I placed a weighted speculum and visualized necrotic tissue in the vagina. The tissue was free and removed and sent for pathology. It is mares and White with blood mixed in. There is no solid tissue. It appears necrotic. The cervix is not visualized. Upon palpation there is tissue extruding from he cervix but no actual cervical tissue is appreciated. The tumor is [id number] cm from the cervix. But the mass palpated approximately the size of a large softball (12 cm) and encompasses the entire pelvis. There is not extension to the pelvic side jo. No obvious lymphadenopathy is appreciated. The bladder is not involved. There is no rectovaginal involvement. A rectal exam reveals in tact sphincter and no intrinsic rectal mass and no erosion. I removed large amounts of tissue from the mass and sent for pathology. There was no active bleeding. Instruments removed from the vagina. Taken to recovery in stable condition. Await final path for suggestions on follow up Findings of the Procedure vulva appears normal for age. Lymphedma with extensive stasis changes in the right extremity, much greater than right. Cannot palpate inguinal region. Allergies and Home Medications Allergies Coded Allergies: No Known Drug Allergies (Unverified , 06/09/17) Home Medications No Active Prescriptions or Reported Meds PHUC PARIKH DO Jun 11, 2017 1:57 pm
[2017-06-11] MEDS: MICONAZOLE 2% POWDER (DESENEX AF) 90 GM TOP SCH ×2 (17:19→21:48)
[2017-06-11] MEDS: amLODIPine 5 MG (NORVASC) TAB PO SCH (17:19)
[2017-06-11] MEDS: MEGESTROL 40 MG (MEGACE) TAB PO SCH (18:08)
[2017-06-11] MEDS ORDERED: ceFAZolin 2 GM/50 ML NS 50 ML IV SCH (19:45)
[2017-06-12] VITALS (18 sets, daily range): BP systolic 127–187; BP diastolic 65–94
[2017-06-12] MEDS: NS IV 500 ML 500 ML IV SCH (00:28)
[2017-06-12] MEDS: morphine INJ 4 MG/ML 1 ML (VIAL/SYRINGE) IV PRN (03:45)
[2017-06-12 03:55] LABS: BASOPHILS % (AUTO) 0 % (0-10); EOSINOPHILS % (AUTO) 0 % (0-10); HEMATOCRIT 24 % (35-52); HEMOGLOBIN 7.3 G/DL (11.5-16.0); LYMPHOCYTES # (AUTO) 0.7 X 10^3 (1.0-4.0); LYMPHOCYTES % (AUTO) 5 % (12-44); MEAN CORPUSCULAR HEMOGLOBIN 25 PG (25-34); MEAN CORPUSCULAR HGB CONC 30 G/DL (32-36); MEAN CORPUSCULAR VOLUME 83 FL (80-99); MONOCYTES # (AUTO) 0.7 X 10^3 (0.0-1.0); MONOCYTES % (AUTO) 4 % (0-12); NEUTROPHILS # (AUTO) 14.8 X 10^3 (1.8-7.8); NEUTROPHILS % (AUTO) 91 % (42-75); PLATELET COUNT 348 10^3/uL (130-400); RED BLOOD COUNT 2.91 10^6/uL (4.35-5.85); RED CELL DISTRIBUTION WIDTH 18.2 % (10.0-14.5); WHITE BLOOD COUNT 16.2 10^3/uL (4.3-11.0)
[2017-06-12 04:10] LABS: CALCIUM 8.4 MG/DL (8.5-10.1); CREATININE SERUM 1.18 MG/DL (0.60-1.30); MAGNESIUM 2.3 MG/DL (1.8-2.4); POTASSIUM 4.9 MMOL/L (3.6-5.0)
--- NOTE | 2017-06-12 07:32 | Progress Note-Hospitalist ---
Subjective HPI/CC On Admission Date Seen by Provider: Jun 12, 2017 Time Seen by Provider: 07:15 Pt is a 61yoCF who presented to the ER with complaints of vaginal and rectal bleeding. She has not seen a physician for years and has no left her apartment some May 2013 due to her debility from her morbid obesity. She begin to have vaginal bleeding around 4 months ago but did not seek treatment because it would resolve after a few days. On 06/06 her bleeding picked up and continued to worsening prompting her to call EMS. She reports she was passing clots the size of a cantaloupe. She was also suffering from SOB and weakness. She denies any pain or chest pain. At this time she believes her bleeding to be coming from both her rectum and her vagina. Subjective/Events-last exam Had abd pain overnight but no completely resolved. No other complaints. Objective Exam Vital Signs Vital Sign - Last 12Hours 06/09/17 06/09/17 16:10 19:40 Temp 97.9 Pulse 115 Resp 26 B/P (MAP) 132/51 (78) Pulse Ox 91 O2 Delivery Room Air O2 Flow Rate 2.00 Capillary Refill : Less Than 3 Seconds General Appearance: No Apparent Distress, Anxious, Obese Respiratory: Lungs Clear, No Respiratory Distress Cardiovascular: Regular Rate, Rhythm, No Murmur Gastrointestinal: Normal Bowel Sounds, Non Tender, Soft Extremity: Swelling (R>L) Neurologic/Psychiatric: Alert, Oriented x3 Skin: Other (stasis dermatitis of lower extremities) Results/Procedures Lab Laboratory Tests 06/12/17 03:45 Assessment/Plan Assessment and Plan Assess & Plan/Chief Complaint anemia Diagnosis/Problems Diagnosis/Problems (1) Uterine neoplasm of uncertain malignant potential Assessment & Plan: EUA yesterday revealed finding consistent with endometrial cancer path pending Dr Menjivar has talked with Fuel Cell Builder/Onc Will need referral to tertiary center as an outpatient Will transfer to floor (2) Anemia Assessment & Plan: Hgb improved slightly today Avoid blood draws as able s/p 1g Infed Surgery consulted- appreciate recs Qualifiers: Qualified Codes: D62 - Acute posthemorrhagic anemia (3) Vaginal bleeding problems Status: Acute Assessment & Plan: concern for underlying neoplasm Discussed with Dr Menjivar Transvaginal usg shows elnlarged uterus but technically difficult exam Unable to image here to due habitus (4) Leukocytosis Assessment & Plan: Persistent, likely reactive No signs of infection No fever Will stop rocephin- if febrile or leukocytosis worsens will resume (5) Elevated blood pressure reading Assessment & Plan: Improving on amlodipine (6) Morbid obesity with BMI of 70 and over, adult Assessment & Plan: Complicating care Unable to get MRI of abd due to obesity- discussed with CT unable to obtain as well due to girth Also difficult pelvic exam due to pannus/obesity- done yesterday under anesthesia Will consult social work for assistance with placement and eventual transportation WAGNER MATHIAS MD Jun 12, 2017 07:32
--- NOTE | 2017-06-12 10:17 | Diagnostic Imaging Report ---
INDICATION: Acute anemia. TIME OF EXAM: 4:44 AM. COMPARISON: 06/12/2017. FINDINGS: The heart is enlarged. Mild congestive changes persist. No significant effusion or pneumothorax is seen. IMPRESSION: Stable congestive changes when compared with the exam of one day earlier. Dictated by: Dictated on workstation # [id number]
[2017-06-12] MEDS: MICONAZOLE 2% POWDER (DESENEX AF) 90 GM TOP SCH ×2 (10:22→21:00)
[2017-06-12] MEDS: amLODIPine 5 MG (NORVASC) TAB PO SCH (10:22)
[2017-06-12] MEDS: MEGESTROL 40 MG (MEGACE) TAB PO SCH (10:22)
--- NOTE | 2017-06-12 14:22 | Anesthesia-General Post-Op ---
General Patient Condition Mental Status/LOC: Same as Preop Cardiovascular: Satisfactory Nausea/Vomiting: Absent Respiratory: Satisfactory Pain: Controlled Complications: Absent Post Op Complications Complications None Follow Up Care/Instructions Patient Instructions None needed. Anesthesia/Patient Condition Patient Condition Patient is without complaints, still anemic but appears stable, no apparent adverse anesthesia problems. VANE WESTON DO Jun 12, 2017 14:22
--- NOTE | 2017-06-12 16:53 | CONSULTATION REPORT ---
DATE OF SERVICE: 06/12/2017 The patient is admitted to ICU bed 6. REFERRING PHYSICIAN: Mandy Caldera MD IMPRESSION: 1. A 61-year-old morbidly obese female admitted to the hospital with uncontrolled vaginal bleeding. 2. EUA completed on 06/11/2017, showing a large mass the origin of which is unclear, status post multiple biopsies. 3. Preliminary pathology report today is that of a poorly differentiated malignancy with special stains pending. 4. Symptomatic anemia due to chronic blood loss, status post packed red blood cell transfusion as well as parenteral iron therapy. RECOMMENDATIONS: 1. Maintain hemoglobin level more than 7 grams per deciliter with transfusion as needed. 2. Await pathology report. 3. Unable to do staging scans locally because of her weight and the limitation of the local scanning equipment. 4. The patient would need TYPEWRITERS FUNCTIONAL TESTER oncology evaluation at a tertiary institution, not only for staging scans, but for possible surgical resection. 5. Once this is complete, further treatment options could be discussed locally whether it is a radiation therapy or chemohormonal therapy. 6. Agree with social service consult to coordinate needed services. BRIEF HISTORY: The patient is a 61-year-old female who was brought to the emergency room with a history of significant vaginal bleeding. The patient mention that she has had intermittent vaginal bleeding for more than four years. Initially, it was very mild and would last only one or two days, but over the years it became more heavier and prolonged to the point that past week she has been bleeding significantly and passing large clots. She has been shut in her home and has not left her home for more than four years. She has not had regular medical care even prior to that and her last Pap smear was more than 10 years ago. For the past six months she has not been able to stand or ambulate. Twice a week she had a lady come in and help her with shopping and laundry even this had been sporadic. As the bleeding worsened last week and she was getting lightheaded and weak, she contacted her son who is in [place] who in turn contacted the local police with the help of EMS and police she was transferred to [facility] emergency room and admitted. She also complained of rapidly increased swelling in the right lower extremity over the last year, to the point where she is unable to lift her leg or even stand or ambulate. She denied other areas of bony aches or pains, no headaches or visual changes. Her appetite has been fair and in spite of a poor intake she has not lost any significant amount of weight. PAST MEDICAL HISTORY: Essentially unremarkable with no major medical problems and no regular medical care for a long time. She was diagnosed with hypertension at the time of admission and is on treatment for it. PAST SURGICAL HISTORY: Only previous surgery was a tonsillectomy and adenoidectomy in childhood. She had the exam under anesthesia and biopsy of cervical mass yesterday as mentioned in the HPI. SOCIAL HISTORY: The patient is single and lives by herself in [facility]. She has a son aged 43 years who lives in [place]. She has a cousin who lives close by who checks on her intermittently. No other family members. She has smoked a few cigarettes in the remote past, but has not smoked in 30 to 40 years. No alcohol or other recreational drug use. She has not been able to work for a long time. FAMILY HISTORY: Significant for her mother who was diagnosed with colon cancer in her early to mid 50s. Maternal uncle was diagnosed with a head and neck cancer. Maternal grandmother was diagnosed with breast cancer at the age of 40 years. No other significant family history the patient knows of. PHYSICAL EXAMINATION: GENERAL: Today, showed elderly female, morbidly obese, awake and oriented, anxious, but otherwise in no acute distress. VITAL SIGNS: Temperature was 98.5, pulse rate 100, respirations 20, blood pressure 146/74, oxygen saturation was 94% on 5 liters of oxygen by nasal cannula. HEENT: Normocephalic, extraocular muscles intact, conjunctivae pale, oral mucosa moist. NECK: Supple, with no JVD. No cervical, supraclavicular or axillary lymphadenopathy palpable. CHEST: Symmetrical. LUNGS: With distant breath sounds. Fairly clear without wheezes or rales. HEART: Regular in rate and rhythm. No definite murmurs or gallops. ABDOMEN: Significantly obese, soft, nontender. No definite hepatosplenomegaly or masses palpable. EXTREMITIES: Significant lymphedema of the right lower extremity it is worse than the left. NEUROLOGIC: Showed a motor strength of 4/5 in both upper extremities and a 3-4/5 in both lower extremities with the right slightly worse than the left. LABORATORY DATA: CBC done at the time of admission showed WBC 13.5, hemoglobin 5.4, MCV 76, platelet count 445,000 with neutrophil count of 10.2 and lymphocyte count 1.5. Most recent CBC from today morning showed white count of 16.2, hemoglobin 7.3, platelet count 348,000 with neutrophil count of 14.8. Chemistry panel done at the time of admission showed relatively normal electrolytes. BUN was 15 and creatinine 1.37 with GFR 39 mL per minute, nonfasting glucose was 156. Total bilirubin was 1.1 with the rest of the liver function studies within normal limits. BMP done today showed normal electrolytes. BUN 15 and creatinine 1.18 with GFR 47 mL per minute. Glucose was 147. The patient had an ultrasound of the pelvis transabdominally as well as transvaginally done on 06/10/2017, which was a severely limited study with enlargement of the uterus measuring 15.3 x 11.0 x 8.1 cm lobulated appearance. Endometrium was not well visualized. Ovaries are not visualized. No definite free fluid seen. Thank you for allowing me to participate in this patient's care. I will follow the patient with you and make appropriate recommendations. Job ID: [id number] DocumentID: [id number] Dictated Date: 06/12/2017 15:51:39 Client Support Representative Date: 06/12/2017 16:53:10 Dictated By: DEBORAH THACKER MD MTDD
[2017-06-13] VITALS: BP 115/58
[2017-06-13 04:07] VITALS: BP 126/69
[2017-06-13 06:27] LABS: BASOPHILS % (AUTO) 0 % (0-10); EOSINOPHILS % (AUTO) 4 % (0-10); HEMATOCRIT 23 % (35-52); LYMPHOCYTES # (AUTO) 1.2 X 10^3 (1.0-4.0); LYMPHOCYTES % (AUTO) 13 % (12-44); MEAN CORPUSCULAR HGB CONC 30 G/DL (32-36); MEAN CORPUSCULAR VOLUME 85 FL (80-99); MEAN PLATELET VOLUME 10.2 FL (7.4-10.4); MONOCYTES % (AUTO) 11 % (0-12); NEUTROPHILS # (AUTO) 6.6 X 10^3 (1.8-7.8); NEUTROPHILS % (AUTO) 72 % (42-75); PLATELET COUNT 332 10^3/uL (130-400); RED BLOOD COUNT 2.71 10^6/uL (4.35-5.85); RED CELL DISTRIBUTION WIDTH 19.6 % (10.0-14.5); WHITE BLOOD COUNT 9.2 10^3/uL (4.3-11.0)
[2017-06-13 06:28] LABS: EOSINOPHILS # (AUTO) 0.4 10^3/uL (0.0-0.3)
[2017-06-13 06:32] LABS: MEAN CORPUSCULAR HEMOGLOBIN 26 PG (25-34)
[2017-06-13 06:38] LABS: CALCIUM 8.3 MG/DL (8.5-10.1); CREATININE SERUM 0.95 MG/DL (0.60-1.30); POTASSIUM 4.5 MMOL/L (3.6-5.0)
[2017-06-13] MEDS: ONDANSETRON 4 MG/2 ML (SDV) Z0FRAN IVP PRN (06:41)
[2017-06-13 08:00] VITALS: BP 126/61
[2017-06-13] MEDS: amLODIPine 5 MG (NORVASC) TAB PO SCH (08:13)
[2017-06-13] MEDS: ACETAMINOPHEN 325 MG TABLET/CAPLET (TYLENOL) PO PRN ×2 (08:13→14:32)
[2017-06-13] MEDS: MICONAZOLE 2% POWDER (DESENEX AF) 90 GM TOP SCH ×2 (08:13→21:23)
[2017-06-13] MEDS: MEGESTROL 40 MG (MEGACE) TAB PO SCH (08:13)
--- NOTE | 2017-06-13 08:23 | Progress Note-Hospitalist ---
Subjective HPI/CC On Admission Date Seen by Provider: Jun 13, 2017 Time Seen by Provider: 08:05 Pt is a 61yoCF who presented to the ER with complaints of vaginal and rectal bleeding. She has not seen a physician for years and has no left her apartment some May 2013 due to her debility from her morbid obesity. She begin to have vaginal bleeding around 4 months ago but did not seek treatment because it would resolve after a few days. On 06/06 her bleeding picked up and continued to worsening prompting her to call EMS. She reports she was passing clots the size of a cantaloupe. She was also suffering from SOB and weakness. She denies any pain or chest pain. At this time she believes her bleeding to be coming from both her rectum and her vagina. Subjective/Events-last exam Pt reports feeling poorly. Nauseated this AM. I have discussed possibility of transfer to [facility] but she declines today. Denies continued vaginal bleeding. Objective Exam Vital Signs Vital Sign - Last 12Hours 06/09/17 06/09/17 16:10 19:40 Temp 97.9 Pulse 115 Resp 26 B/P (MAP) 132/51 (78) Pulse Ox 91 O2 Delivery Room Air O2 Flow Rate 2.00 Capillary Refill : Less Than 3 Seconds General Appearance: No Apparent Distress, Obese Respiratory: Lungs Clear, No Respiratory Distress Cardiovascular: Regular Rate, Rhythm, No Murmur Gastrointestinal: Normal Bowel Sounds, Non Tender, Soft Extremity: Swelling (R>L) Neurologic/Psychiatric: Alert, Oriented x3 Results/Procedures Lab Laboratory Tests 06/13/17 05:18 Assessment/Plan Assessment and Plan Assess & Plan/Chief Complaint anemia Diagnosis/Problems Diagnosis/Problems (1) Uterine neoplasm of uncertain malignant potential Assessment & Plan: EUA 06/11 revealed findings consistent with endometrial cancer Prelim on path shows poorly differentiated carcinoma Dr Menjivar has talked with [facility]/Onc Will need referral to tertiary center as an outpatient (2) Anemia Assessment & Plan: Hgb 7.0 today Trend s/p 1g Infed Surgery consulted- appreciate recs Qualifiers: Qualified Codes: D62 - Acute posthemorrhagic anemia (3) Vaginal bleeding problems Status: Acute Assessment & Plan: 2/[address] Menjivar Transvaginal usg shows enlarged uterus but technically difficult exam Unable to image here to due habitus (4) Leukocytosis Assessment & Plan: Persistent, likely reactive No signs of infection No fever Will stop rocephin- if febrile or leukocytosis worsens will resume (5) Elevated blood pressure reading Assessment & Plan: Improving on amlodipine (6) Morbid obesity with BMI of 70 and over, adult Assessment & Plan: Complicating care Unable to get MRI of abd due to obesity- discussed with CT unable to obtain as well due to girth Also difficult pelvic exam due to pannus/obesity- done yesterday under anesthesia Will consult social work for assistance with placement and eventual transportation WAGNER MATHIAS MD Jun 13, 2017 08:23
--- NOTE | 2017-06-13 10:50 | Progress Note-Standard ---
Standard Progress Note Progress Notes/Assess & Plan Date Seen by Provider: Jun 12, 2017 Time Seen by Provider: 09:30 Progress/Assessment & Plan Spoke with patient and family today. Transfer to [facility] is pending. No active bleeding and hgb stable. Discussed findings of exam. Likely uterine etiology with prolapse through cervix. Large (12x15 estimated on exam) mass, friable and necrotic. Seems to encompass the cervix but not arise from there. Does not involve bladder or rectum and does not extend into pelvic side jo. However, cannot assess lymphnodes nor upper abdominal involvement without imaging which we cannot do here. Discussed possibility of transfer to tertiary care center for further workup, but not sure that transfer could occur without tissue diagnosis. CA 125 ordered 1. gynecologic mass, likely uterine. pathology pending 2. profound anemia due to massive vaginal bleeding due to tumor, stable 3, lower extremity edema/lymphedema. This suggests mass blocking flow or lymphadenopathy. However, cannot fully assess. Have consulted by phone with [facility] [place] [facility] Would consider outpatient consult once final path is available Patient currently on megace 80 mg daily to improve bleeding. Currently stable for the time being. PHUC PARIKH DO Jun 13, 2017 10:50 am
--- NOTE | 2017-06-13 10:53 | Progress Note-Standard ---
Standard Progress Note Progress Notes/Assess & Plan Date Seen by Provider: Jun 13, 2017 Time Seen by Provider: 11:45 Progress/Assessment & Plan CA 125 6.7 Patient has declined transfer and [facility] suggested evaluation and imaging as an outpatient at this time. 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 This has poorer outlook. But may be amenable to chemotherapy. Will plan outpatient evaluation with Dr. Casanova at [facility] with imaging at that time. Late entry - after speaking via phone with Dr. Caldera, transfer on Friday may be considered. Patient is aggreeable to this, just feels poorly today and doesn't wish transfer. Hospitalist to Hospitalist may be preferable with [facility] and/or [facility] onc consult. Pathology still pending however. PHUC PARIKH DO Jun 13, 2017 10:53
[2017-06-13 12:00] VITALS: BP 111/53
[2017-06-13 15:48] VITALS: BP 145/65
[2017-06-13] MEDS: HYDROcodone/APAP 5 MG/325 MG (LORTAB) TAB PO PRN ×2 (16:29→22:51)
[2017-06-13 20:44] VITALS: BP 144/67
[2017-06-14] VITALS: BP 124/59
[2017-06-14 04:00] VITALS: BP 138/63
[2017-06-14 06:40] LABS: BASOPHILS % (AUTO) 0 % (0-10); EOSINOPHILS # (AUTO) 0.5 10^3/uL (0.0-0.3); EOSINOPHILS % (AUTO) 7 % (0-10); HEMATOCRIT 25 % (35-52); HEMOGLOBIN 7.5 G/DL (11.5-16.0); LYMPHOCYTES # (AUTO) 1.1 X 10^3 (1.0-4.0); LYMPHOCYTES % (AUTO) 18 % (12-44); MEAN CORPUSCULAR HEMOGLOBIN 26 PG (25-34); MEAN CORPUSCULAR HGB CONC 30 G/DL (32-36); MEAN CORPUSCULAR VOLUME 87 FL (80-99); MEAN PLATELET VOLUME 9.6 FL (7.4-10.4); MONOCYTES % (AUTO) 16 % (0-12); NEUTROPHILS # (AUTO) 3.7 X 10^3 (1.8-7.8); NEUTROPHILS % (AUTO) 58 % (42-75); PLATELET COUNT 323 10^3/uL (130-400); RED BLOOD COUNT 2.93 10^6/uL (4.35-5.85); RED CELL DISTRIBUTION WIDTH 20.7 % (10.0-14.5); WHITE BLOOD COUNT 6.3 10^3/uL (4.3-11.0)
[2017-06-14 06:59] LABS: BUN/CREATININE RATIO 15; CALCIUM 8.5 MG/DL (8.5-10.1); CARBON DIOXIDE 28 MMOL/L (21-32); CHLORIDE 104 MMOL/L (98-107); CREATININE SERUM 0.88 MG/DL (0.60-1.30); GFR ESTIMATED > 60; GLUCOSE 106 MG/DL (70-105); POTASSIUM 4.6 MMOL/L (3.6-5.0); SODIUM 139 MMOL/L (135-145)
[2017-06-14 08:00] VITALS: BP 113/66
[2017-06-14] MEDS: ACETAMINOPHEN 325 MG TABLET/CAPLET (TYLENOL) PO PRN (09:27)
[2017-06-14] MEDS: MEGESTROL 40 MG (MEGACE) TAB PO SCH (09:27)
[2017-06-14] MEDS: amLODIPine 5 MG (NORVASC) TAB PO SCH (09:27)
[2017-06-14] MEDS: MICONAZOLE 2% POWDER (DESENEX AF) 90 GM TOP SCH ×2 (09:27→20:53)
[2017-06-14] MEDS: ONDANSETRON 4 MG/2 ML (SDV) Z0FRAN IVP PRN (10:24)
[2017-06-14] MEDS ORDERED: METOCLOPRAMIDE 10 MG (REGLAN) TAB PO NR (11:17)
[2017-06-14 12:00] VITALS: BP 115/58
--- NOTE | 2017-06-14 13:21 | Progress Note-Hospitalist ---
Subjective HPI/CC On Admission Date Seen by Provider: Jun 14, 2017 Time Seen by Provider: 12:00 Pt is a 61yoCF who presented to the ER with complaints of vaginal and rectal bleeding. She has not seen a physician for years and has no left her apartment some May 2013 due to her debility from her morbid obesity. She begin to have vaginal bleeding around 4 months ago but did not seek treatment because it would resolve after a few days. On 06/06 her bleeding picked up and continued to worsening prompting her to call EMS. She reports she was passing clots the size of a cantaloupe. She was also suffering from SOB and weakness. She denies any pain or chest pain. At this time she believes her bleeding to be coming from both her rectum and her vagina. Objective Exam Vital Signs Vital Sign - Last 12Hours 06/09/17 06/09/17 16:10 19:40 Temp 97.9 Pulse 115 Resp 26 B/P (MAP) 132/51 (78) Pulse Ox 91 O2 Delivery Room Air O2 Flow Rate 2.00 Capillary Refill : Less Than 3 Seconds General Appearance: No Apparent Distress, Obese Respiratory: Chest Non Tender, Lungs Clear, Normal Breath Sounds, No Accessory Muscle Use, No Respiratory Distress Cardiovascular: Regular Rate, Rhythm, No Edema, No Gallop, No JVD, No Murmur, Normal Peripheral Pulses Gastrointestinal: Normal Bowel Sounds, Soft, Other (mild epigastric discomfort to palpation without rebound or guarding. Morbid obesity precludes evaluation for mass) Extremity: Other (plus edema with mild discomfort over the right thigh no erythema is noted no skin induration is noted.) Results/Procedures Lab Laboratory Tests 06/14/17 06:30 Assessment/Plan Assessment and Plan Assess & Plan/Chief Complaint 1. Poorly differentiated carcinoma the uterus. After discussion the patient is amenable to ultimate transfer to research that had been initiated by Dr. Sorto. 2. Immobility due to morbid obesity with increased lower extremity edema. As her blood pressures have been mid to low normal we'll discontinue amlodipine and obtain right lower extremity venous Doppler evaluation and she does have multiple risk factors for DVT. 3. Anemia secondary to bleeding from number 1 hemodynamically stable we'll repeat counts in the morning with type and screen SHAYY TAN MD Jun 14, 2017 13:21
[2017-06-14] MEDS: HYDROcodone/APAP 5 MG/325 MG (LORTAB) TAB PO PRN ×2 (13:44→20:53)
--- NOTE | 2017-06-14 13:46 | Diagnostic Imaging Report ---
PROCEDURE: US right lower extremity venous. TECHNIQUE: Multiple real-time grayscale images were obtained over the right lower extremity in various projections. Additional duplex Doppler and color Doppler images were also obtained. INDICATION: Right lower extremity swelling and pain. COMPARISON: None. FINDINGS: Evaluation is suboptimal due to body habitus. The common femoral vein, femoral vein, profunda femoris, and popliteal veins are normal in appearance. The vessels show normal compressibility, color flow and doppler augmentation. The visualized deep calf veins demonstrate no distinct intraluminal thrombus. There is edema in the right lower extremity. IMPRESSION: 1. Somewhat suboptimal evaluation due to body habitus, however no evidence of deep venous thrombosis in the right lower extremity. Dictated by: Dictated on workstation # [id number]
[2017-06-14] MEDS: morphine INJ 4 MG/ML 1 ML (VIAL/SYRINGE) IV PRN ×2 (14:26→16:26)
[2017-06-14 16:00] VITALS: BP 134/64
[2017-06-14] MEDS: METOCLOPRAMIDE 10 MG (REGLAN) TAB PO SCH ×2 (16:07→20:53)
[2017-06-14 19:51] VITALS: BP 129/70
[2017-06-15] VITALS (7 sets, daily range): BP systolic 127–154; BP diastolic 56–79
[2017-06-15 06:11] LABS: BASOPHILS # (AUTO) 0.1 10^3/uL (0.0-0.1); BASOPHILS % (AUTO) 1 % (0-10); EOSINOPHILS # (AUTO) 0.4 10^3/uL (0.0-0.3); EOSINOPHILS % (AUTO) 6 % (0-10); HEMATOCRIT 29 % (35-52); HEMOGLOBIN 8.4 G/DL (11.5-16.0); LYMPHOCYTES # (AUTO) 0.9 X 10^3 (1.0-4.0); LYMPHOCYTES % (AUTO) 13 % (12-44); MEAN CORPUSCULAR HEMOGLOBIN 26 PG (25-34); MEAN CORPUSCULAR HGB CONC 29 G/DL (32-36); MEAN CORPUSCULAR VOLUME 89 FL (80-99); MEAN PLATELET VOLUME 10.3 FL (7.4-10.4); MONOCYTES % (AUTO) 15 % (0-12); NEUTROPHILS # (AUTO) 4.5 X 10^3 (1.8-7.8); NEUTROPHILS % (AUTO) 66 % (42-75); PLATELET COUNT 336 10^3/uL (130-400); RED BLOOD COUNT 3.25 10^6/uL (4.35-5.85); RED CELL DISTRIBUTION WIDTH 21.7 % (10.0-14.5); WHITE BLOOD COUNT 6.8 10^3/uL (4.3-11.0)
[2017-06-15] MEDS: METOCLOPRAMIDE 10 MG (REGLAN) TAB PO SCH ×4 (06:30→20:27)
[2017-06-15 06:44] LABS: BUN/CREATININE RATIO 14; CALCIUM 8.9 MG/DL (8.5-10.1); CARBON DIOXIDE 23 MMOL/L (21-32); CHLORIDE 106 MMOL/L (98-107); CREATININE SERUM 0.81 MG/DL (0.60-1.30); GFR ESTIMATED > 60; GLUCOSE 99 MG/DL (70-105); POTASSIUM 4.8 MMOL/L (3.6-5.0); SODIUM 140 MMOL/L (135-145)
[2017-06-15] MEDS: MEGESTROL 40 MG (MEGACE) TAB PO SCH (07:53)
[2017-06-15] MEDS: MICONAZOLE 2% POWDER (DESENEX AF) 90 GM TOP SCH ×2 (07:54→20:28)
--- NOTE | 2017-06-15 12:09 | Progress Note-Hospitalist ---
Subjective HPI/CC On Admission Date Seen by Provider: Jun 15, 2017 Time Seen by Provider: 09:30 Pt is a 61yoCF who presented to the ER with complaints of vaginal and rectal bleeding. She has not seen a physician for years and has no left her apartment some May 2013 due to her debility from her morbid obesity. She begin to have vaginal bleeding around 4 months ago but did not seek treatment because it would resolve after a few days. On 06/06 her bleeding picked up and continued to worsening prompting her to call EMS. She reports she was passing clots the size of a cantaloupe. She was also suffering from SOB and weakness. She denies any pain or chest pain. At this time she believes her bleeding to be coming from both her rectum and her vagina. Subjective/Events-last exam patient still reports no appetite but is keeping liquids down without difficulty. She's had some intermittent mild nausea despite metoclopramide. She is passing gas and denies any change in abdominal distention. She does have intermittent epigastric cramping sensation. She denies chills or fever. There is been no further significant vaginal bleeding. Objective Exam Vital Signs Vital Sign - Last 12Hours 06/09/17 06/09/17 16:10 19:40 Temp 97.9 Pulse 115 Resp 26 B/P (MAP) 132/51 (78) Pulse Ox 91 O2 Delivery Room Air O2 Flow Rate 2.00 Capillary Refill : Less Than 3 Seconds General Appearance: No Apparent Distress, Chronically ill, Obese Respiratory: Chest Non Tender, Lungs Clear, Normal Breath Sounds, No Accessory Muscle Use, No Respiratory Distress Cardiovascular: Regular Rate, Rhythm, No Edema, No Gallop, No JVD, No Murmur Gastrointestinal: Normal Bowel Sounds, No Organomegaly, No Pulsatile Mass, Soft , Other (mild epigastric discomfort palpation without rebound or guarding.) Results/Procedures Lab Laboratory Tests 06/15/17 04:35 06/15/17 04:55 Assessment/Plan Assessment and Plan Assess & Plan/Chief Complaint 1. Poorly differentiated carcinoma of the uterus. After discussion the patient is amenable to ultimate transfer to research that had been initiated by Dr. Caldera or [place] 2. Immobility due to morbid obesity with increased lower extremity edema. venous Doppler revealed no evidence for DVT of the right lower extremity. Patient normotensive holding amlodipine due to edema issues. 3. Anemia secondary to bleeding from number 1 hemodynamically stable with hemoglobin level higher this morning at 8.7 without evidence for significant vaginal bleeding. SHAYY TAN MD Jun 15, 2017 12:09
[2017-06-15] MEDS: HYDROcodone/APAP 5 MG/325 MG (LORTAB) TAB PO PRN (20:27)
[2017-06-15] MEDS: morphine INJ 4 MG/ML 1 ML (VIAL/SYRINGE) IV PRN (22:56)
[2017-06-16 03:53] VITALS: BP 142/72
[2017-06-16 06:10] LABS: BASOPHILS % (AUTO) 0 % (0-10); EOSINOPHILS # (AUTO) 0.2 10^3/uL (0.0-0.3); EOSINOPHILS % (AUTO) 2 % (0-10); HEMATOCRIT 26 % (35-52); HEMOGLOBIN 7.5 G/DL (11.5-16.0); LYMPHOCYTES # (AUTO) 0.7 X 10^3 (1.0-4.0); LYMPHOCYTES % (AUTO) 10 % (12-44); MEAN CORPUSCULAR HEMOGLOBIN 25 PG (25-34); MEAN CORPUSCULAR HGB CONC 29 G/DL (32-36); MEAN CORPUSCULAR VOLUME 88 FL (80-99); MEAN PLATELET VOLUME 9.9 FL (7.4-10.4); MONOCYTES # (AUTO) 1.3 X 10^3 (0.0-1.0); MONOCYTES % (AUTO) 16 % (0-12); NEUTROPHILS # (AUTO) 5.5 X 10^3 (1.8-7.8); NEUTROPHILS % (AUTO) 72 % (42-75); PLATELET COUNT 322 10^3/uL (130-400); RED BLOOD COUNT 2.96 10^6/uL (4.35-5.85); RED CELL DISTRIBUTION WIDTH 22.1 % (10.0-14.5); WHITE BLOOD COUNT 7.7 10^3/uL (4.3-11.0)
[2017-06-16] MEDS: METOCLOPRAMIDE 10 MG (REGLAN) TAB PO SCH ×4 (06:14→21:08)
[2017-06-16] MEDS: ONDANSETRON 4 MG/2 ML (SDV) Z0FRAN IVP PRN ×2 (06:32→21:08)
[2017-06-16] MEDS: morphine INJ 4 MG/ML 1 ML (VIAL/SYRINGE) IV PRN (06:32)
[2017-06-16 06:33] LABS: BUN/CREATININE RATIO 15; CALCIUM 8.7 MG/DL (8.5-10.1); CARBON DIOXIDE 28 MMOL/L (21-32); CHLORIDE 101 MMOL/L (98-107); CREATININE SERUM 0.75 MG/DL (0.60-1.30); GFR ESTIMATED > 60; GLUCOSE 125 MG/DL (70-105); POTASSIUM 4.5 MMOL/L (3.6-5.0); SODIUM 143 MMOL/L (135-145)
[2017-06-16 08:00] VITALS: BP 130/66
[2017-06-16] MEDS: MICONAZOLE 2% POWDER (DESENEX AF) 90 GM TOP SCH ×2 (08:42→21:08)
[2017-06-16] MEDS: MEGESTROL 40 MG (MEGACE) TAB PO SCH (08:42)
[2017-06-16 12:00] VITALS: BP 173/79
--- NOTE | 2017-06-16 13:56 | Progress Note-Standard ---
Standard Progress Note Progress Notes/Assess & Plan Time Seen by Provider: 13:00 Progress/Assessment & Plan Patient had remained stable over the weekend. No acute bleeding. Patient is agreeable to transfer at this point. it will be difficult to transport the patient as an outpatient to be evaluated she sheerly due to her body habitus. I will contact the gynecologic oncologist at [facility]. to coordinate transfer.[facility]. PHUC PARIKH DO Jun 16, 2017 13:56
--- NOTE | 2017-06-16 15:19 | Progress Note-Hospitalist ---
Standard Progress Note Progress Notes/Assess & Plan Date Seen 06/16/17 Time Seen by Provider: 15:16 Diagnosis Symptomatic anemia Assess & Plan/Chief Complaint Dr. Menjivar informs me this afternoon that a firm diagnosis on the uterine malignancy has been posted. She is working on a referral to [facility] in [facility]. The patient reports that she is reasonably comfortable at this time. Bleeding has been relatively minimal. Hemoglobin has hovered at the 7.5-8 range and she is asymptomatic. Physical exam: The patient is pleasant and appears comfortable. Lungs are clear to auscultation. CV is regular without murmur. Abdomen reveals a very large pannus. Impression: Gynecologic malignancy. 2.anemia secondary to uterine bleeding. 3.morbid obesity. Labs Laboratory Tests 06/15/17 04:35 06/15/17 04:55 06/16/17 06:00 OLIVERIO PACHECO MD Jun 16, 2017 15:19
[2017-06-16 16:36] VITALS: BP 150/73
[2017-06-16 19:23] VITALS: BP 134/66
[2017-06-17 00:07] VITALS: BP 144/67
[2017-06-17 03:39] VITALS: BP 142/70
[2017-06-17] MEDS: ONDANSETRON 4 MG/2 ML (SDV) Z0FRAN IVP PRN ×2 (05:38→12:53)
[2017-06-17] MEDS: METOCLOPRAMIDE 10 MG (REGLAN) TAB PO SCH ×4 (06:45→20:50)
[2017-06-17 06:53] LABS: BASOPHILS % (AUTO) 0 % (0-10); EOSINOPHILS # (AUTO) 0.3 10^3/uL (0.0-0.3); EOSINOPHILS % (AUTO) 3 % (0-10); HEMATOCRIT 27 % (35-52); HEMOGLOBIN 7.9 G/DL (11.5-16.0); LYMPHOCYTES # (AUTO) 1.2 X 10^3 (1.0-4.0); LYMPHOCYTES % (AUTO) 15 % (12-44); MEAN CORPUSCULAR HEMOGLOBIN 26 PG (25-34); MEAN CORPUSCULAR HGB CONC 29 G/DL (32-36); MEAN CORPUSCULAR VOLUME 88 FL (80-99); MEAN PLATELET VOLUME 10.7 FL (7.4-10.4); MONOCYTES # (AUTO) 1.1 X 10^3 (0.0-1.0); MONOCYTES % (AUTO) 13 % (0-12); NEUTROPHILS # (AUTO) 5.7 X 10^3 (1.8-7.8); NEUTROPHILS % (AUTO) 69 % (42-75); PLATELET COUNT 365 10^3/uL (130-400); RED BLOOD COUNT 3.09 10^6/uL (4.35-5.85); WHITE BLOOD COUNT 8.3 10^3/uL (4.3-11.0)
[2017-06-17 07:12] LABS: BUN/CREATININE RATIO 18; CALCIUM 9.4 MG/DL (8.5-10.1); CARBON DIOXIDE 29 MMOL/L (21-32); CHLORIDE 101 MMOL/L (98-107); CREATININE SERUM 0.84 MG/DL (0.60-1.30); GFR ESTIMATED > 60; GLUCOSE 114 MG/DL (70-105); POTASSIUM 4.3 MMOL/L (3.6-5.0); SODIUM 142 MMOL/L (135-145)
[2017-06-17 08:00] VITALS: BP 169/77
[2017-06-17] MEDS: MEGESTROL 40 MG (MEGACE) TAB PO SCH (08:19)
[2017-06-17] MEDS: MICONAZOLE 2% POWDER (DESENEX AF) 90 GM TOP SCH ×2 (08:20→20:51)
[2017-06-17] MEDS: HYDROcodone/APAP 5 MG/325 MG (LORTAB) TAB PO PRN (11:04)
--- NOTE | 2017-06-17 11:54 | Progress Note-Standard ---
Standard Progress Note Progress Notes/Assess & Plan Date Seen by Provider: Jun 17, 2017 Time Seen by Provider: 11:30 Progress/Assessment & Plan Pathology is consistent with a poorly differentiated adenocarcinoma. We are not able to stage the patient however because of limitations with our CT scanner and her body habitus. Her girth this 72 centimeters. An BMI 74. Still working on transfer to a higher level Center. PHUC PARIKH DO Jun 17, 2017 11:54
[2017-06-17 12:00] VITALS: BP 142/85
[2017-06-17 16:00] VITALS: BP 166/82
--- NOTE | 2017-06-17 16:24 | Progress Note-Hospitalist ---
Standard Progress Note Progress Notes/Assess & Plan Date Seen 06/17/17 Time Seen by Provider: 15:45 Diagnosis Symptomatic anemia Assess & Plan/Chief Complaint Dr. Menjivar called me at noon reporting that she had continued her search for a referral opportunity. The fellow from research in [place] had been called multiple times without returning her call. She then spoke to a Dr. Wilcox of the [facility] service at [facility]. He apparently agreed to take the patient as an inpatient transfer to the hospitalist service. At 1245 I talked to 1 call and the process started. It is now 1620 and I still have no agreement to take her. Physical exam: She is alert and oriented. She remained steadfastly in bed. Lungs are clear to auscultation. CV is regular. Hemoglobin remains steady. Impression: 1.blood loss anemia. 2.poorly differentiated adenocarcinoma of the uterus. Labs Laboratory Tests 06/16/17 06:00 06/17/17 05:39 OLIVERIO PACHECO MD Jun 17, 2017 16:24
--- NOTE | 2017-06-17 16:25 | Progress Note-Hospitalist ---
Standard Progress Note Progress Notes/Assess & Plan Date Seen 06/17/17 Time Seen by Provider: 16:10 Diagnosis Symptomatic anemia Labs Laboratory Tests 06/16/17 06:00 06/17/17 05:39 OLIVERIO PACHECO MD Jun 17, 2017 16:25
[2017-06-17] MEDS: morphine INJ 4 MG/ML 1 ML (VIAL/SYRINGE) IV PRN (17:33)
[2017-06-17 19:00] VITALS: BP 144/87
== END 2017-06-17 22:25 | disposition short-term general hospital (02) | DRG 744 ==
LOC: ER 16:07 → ICU 18:59 → 4TH 06-12 15:16
PROVIDERS: ADMIT Family Medicine; ATTEND Family Medicine
PROC: 0UB Female Reproductive System, Excision (ICD-10-PCS; principal; 2017-06-11 12:15)
DX: C54.1 Malignant neoplasm of endometrium (principal); K62.5 Hemorrhage of anus and rectum; N93.9 Abnormal uterine and vaginal bleeding, unspecified; D62 Acute posthemorrhagic anemia; E66.01 Morbid (severe) obesity due to excess calories; Z68.45 Body mass index [BMI] 70 or greater, adult; D72.829 Elevated white blood cell count, unspecified; J45.909 Unspecified asthma, uncomplicated; I89.0 Lymphedema, not elsewhere classified; M54.9 Dorsalgia, unspecified; F41.9 Anxiety disorder, unspecified; R53.81 Other malaise; M79.89 Other specified soft tissue disorders; R03.0 Elevated blood-pressure reading, without diagnosis of hypertension; K59.00 Constipation, unspecified; Z87.891 Personal history of nicotine dependence; Z87.01 Personal history of pneumonia (recurrent)
CPT/HCPCS: 36415; 71045; 76830; 76856; 76937; 80048; 80053; 81000; 83605; 83735; 83880; 84100; 85007; 85014; 85018; 85025; 85027; 85610; 85730; 86304; 86850; 86900; 86901; 86920; 87040; 87070; 87077; 87081; 87804; 93306; 94760; 94761; 96360